=== PATIENT | female | born 1950 | race Two or more races ===

== ENCOUNTER 2022-05-14 10:29 | Emergency (ER) | payer SELFPAY ==
[2022-05-14 10:48] VITALS: BP 145/65; PULSE 73; RESP 18; TEMP 98.4; BMI 26.4
== END 2022-05-14 12:24 | disposition home or self-care (01) ==
LOC: JERFT 10:29 → JER 10:29 → JERFT 12:24
DX: F39 Unspecified mood [affective] disorder (principal); Z76.0 Encounter for issue of repeat prescription
CPT/HCPCS: 99281-25